=== PATIENT | female | born 1995 | race Caucasian/White ===

== ENCOUNTER 2021-01-24 10:48 | Emergency (ER) | payer MEDICAID ==
[~2021-01-24] VITALS: Ht 160 cm; Wt 61.2 kg
[2021-01-24 10:53] VITALS: BP 132/88
[2021-01-24] MEDS ORDERED: IBUP-1957 PO (11:05)
--- NOTE | 2021-01-24 11:10 | NUR ---
SEEN AND EXAMINED BY .
--- NOTE | 2021-01-24 11:14 | NUR ---
Patient discharged to home in stable condition. Written and verbal after care instructions given. Patient verbalizes understanding of instruction.
== END 2021-01-24 11:15 | disposition home or self-care (01) ==
LOC: ER 11:02
DX: K08.89 Other specified disorders of teeth and supporting structures (principal)